=== PATIENT | female | born 1970 | race Caucasian/White ===

== ENCOUNTER → 2016-05-14 | Outpatient (CLI) | payer MEDICARE, OTHER ==
[~2016-05-14] MED LIST: ABILIFY PO; ALPR2TAB7 PO; ASPI81TA45; BUPR-51 PO; BUSP15TA3 PO; FEXO180T94 PO; GEMF600T3 PO; LAMO100T7 PO; LEVO500T63 PO; LIOT25TA10 PO; LISI-625 PO; LOPE2TAB PO; MAGN400T6 PO; METFORMIN PO; MULT-37; ONDA4TAB10 PO; PRAV40TA3 PO; QUET400T6; SAXA5TAB PO; SERT100T PO; SITA100T12 PO; ZOLP10TA6 PO; [UNRECOGNIZED DRUG - CODE] PO
--- NOTE | 2016-05-14 09:36 | DI ---
Indication: ITS.REASON: N83.291 Other ovarian cyst, right side PROCEDURE: US PELVIC (NON-OB): Encounter: Subsequent Comparison: Pelvic ultrasound dated March 21, 2016 FINDINGS: Transvaginal and transabdominal pelvic imaging was performed. The uterus measures 8.3 x 3.1 x 4.3 cm. The parenchyma is homogeneous without fibroids. The endometrial stripe measures 4 mm in thickness. There is no evidence of focal endometrial mass. Both ovaries are identified and normal in appearance. The prior large cyst in the right ovary has resolved. There are two small cysts remaining in the right ovary which measure 1.5 and 2.1 cm in maximal dimension. These are anechoic without internal vascularity. The right ovary measures 2.5 x 2.5 x 2.7 cm. The left ovary appears normal and measures 2.7 x 1.6 x 1.5 cm. There are no abnormal adnexal masses detected. No free fluid. IMPRESSION: Interval resolution of the large right ovarian cyst. Two simple appearing right ovarian cysts currently which do not require further imaging follow-up. .
== END ==
LOC: IMA 07:36
PROVIDERS: ATTEND Obstetrics & Gynecology
DX: N83.291 Other ovarian cyst, right side (principal)